=== PATIENT | male | born 2000 | race Caucasian/White ===

== ENCOUNTER 2021-03-05 17:28 | Emergency (ER) | payer MEDICAID ==
[~2021-03-05] VITALS: Ht 172.7 cm; Wt 82.0 kg
[2021-03-05] MEDS ORDERED: BICA50TA48 PO (17:39)
[2021-03-05] MEDS ORDERED: PROG100C10 PO (17:40)
[2021-03-05 19:00] LABS: CLARITY URINE CLEAR (CLEAR); COLOR URINE YELLOW (YELLOW); KETONES URINE NEGATIVE (NEGATIVE); LEUKOCYTE ESTERASE URINE 2+ (NEGATIVE); NITRITE URINE NEGATIVE (NEGATIVE); OCCULT BLOOD URINE NEGATIVE (NEGATIVE); PH URINE 5.5 (4.5-8.0); PROTEIN URINE NEGATIVE (NEGATIVE); UROBILINOGEN URINE 0.2 E.U./dL (0.2-1.0)
[2021-03-05 19:12] LABS: *AMPHETAMINES SCREEN URINE NEGATIVE (NEGATIVE); *BARBITURATES SCREEN URINE NEGATIVE (NEGATIVE); *BENZODIAZEPINES SCREEN URINE NEGATIVE (NEGATIVE)
[2021-03-05 19:13] LABS: *COCAINE SCREEN URINE NEGATIVE (NEGATIVE); CANNABINOID URINE SCREEN PRESUMTIVE POSITIVE (NEGATIVE); METHADONE URINE SCREEN NEGATIVE (NEGATIVE); OPIATES URINE SCREEN NEGATIVE (NEGATIVE); PHENCYCLIDINE URINE SCREEN NEGATIVE (NEGATIVE)
[2021-03-05] MEDS ORDERED: CEPHALEXIN 250MG CAPSULE PO ONE (19:45)
[2021-03-05] MEDS ORDERED: NON FORMULARY PATIENT HOME MED XX SCH (21:15)
[2021-03-05] MEDS ORDERED: BICALUTAMIDE 50 MG TABLET PO SCH (21:15)
[2021-03-05 21:22] LABS: BASOPHILS % 0.3 % (0.0-2.0); HEMATOCRIT. 37.3 % (42.0-52.0); HEMOGLOBIN. 12.6 g/dL (14.0-18.0); MEAN CORPUSCULAR HEMOGLOBIN 30.7 pg (28.0-32.0); MEAN CORPUSCULAR VOLUME 90.6 fL (80.0-94.0); MEAN PLATELET VOLUME 8.5 fl (7.4-10.4); MONOCYTES % 3.2 % (2.0-8.0); NEUTROPHILS % 86.5 % (40.0-76.0); PLATELET 386 x1000/uL (130-400); RED BLOOD CELL COUNT 4.12 mill/uL (4.7-6.1); RED CELL DISTRIBUTION WIDTH 13.6 % (11.6-14.6)
[2021-03-05 21:30] LABS: CHLORIDE 108 mEq/L (98-107)
[2021-03-05 21:34] LABS: ETHANOL BLOOD < 10 mg/dL
[2021-03-06] MEDS ORDERED: NICO-645 TP (00:20)
[2021-03-06] MEDS ORDERED: HYDR50SY PO (00:20)
[2021-03-06] MEDS ORDERED: CEPH500C2 MT (00:24)
[2021-03-06 01:05] VITALS: BP 119/64
== END 2021-03-06 01:37 | disposition home or self-care (01) ==
LOC: ER 17:28
DX: F32.9 Major depressive disorder, single episode, unspecified (principal); F43.0 Acute stress reaction; S51.812A Laceration without foreign body of left forearm, initial encounter; S51.811A Laceration without foreign body of right forearm, initial encounter; N39.0 Urinary tract infection, site not specified; F43.10 Post-traumatic stress disorder, unspecified; F41.9 Anxiety disorder, unspecified; F20.9 Schizophrenia, unspecified; X78.8XXA Intentional self-harm by other sharp object, initial encounter; Y93.89 Activity, other specified; Y92.9 Unspecified place or not applicable
CPT/HCPCS: 36415; 80053; 80305; 80307; 80320; 80329; 81003; 85025; 99285; Z7610; G0480